=== PATIENT | male | born 2000 | race Caucasian/White ===

== ENCOUNTER 2019-01-06 08:21 | Emergency (ER) | payer BC ==
[~2019-01-06] VITALS: Ht 180.3 cm; Wt 65.0 kg
[~2019-01-06 08:21] MED LIST: NO HOME MEDICATIONS
[2019-01-06 08:28] VITALS: BP 117/61; TEMP 97.6
[2019-01-06] MEDS ORDERED: BUSPAR10 MG PO (08:37)
[2019-01-06] MEDS ORDERED: PROPECIA1 MG PO (08:38)
[2019-01-06 08:41] LABS: COLLECTION METHOD CLEAN CATCH
[2019-01-06 09:15] LABS: MUCOUS Present /lpf; PH 5 (5-8); SQUAMOUS EPITHELIAL 0-2 /hpf; URINE APPEARANCE Clear; URINE BACTERIA None Seen /hpf; URINE BILIRUBIN Negative (NEGATIVE); URINE BLOOD Negative (NEGATIVE); URINE COLOR Yellow; URINE GLUCOSE Negative (NEGATIVE); URINE KETONE Trace (NEGATIVE); URINE LEUKOCYTE ESTERASE Negative (NEGATIVE); URINE NITRATE Negative (NEGATIVE); URINE PROTEIN(semi-quant) 1+ (NEGATIVE); URINE RBC 0-2 /hpf; URINE UROBILINOGEN Negative (NEGATIVE)
[2019-01-06] MEDS ORDERED: DOXYCYCLINE 10100 MG PO (11:19)
[2019-01-06 11:33] VITALS: PULSE 95
== END 2019-01-06 11:34 | disposition home or self-care (01) ==
LOC: COL.ER 08:21
PROVIDERS: Emergency Medicine
DX: N45.1 Epididymitis (principal); F12.90 Cannabis use, unspecified, uncomplicated
CPT/HCPCS: J0696